=== PATIENT | male | born 1960 | race Caucasian/White ===

== ENCOUNTER → 2020-11-04 00:06 | Outpatient (CLI) | payer BC, SELFPAY ==
[2020-11-04 15:57] LABS: SARS-CoV-2 RNA PCR Negative
== END ==
PROVIDERS: PCP Internal Medicine; Visit Provider Internal Medicine Gastroenterology
DX: Z01.812 Encounter for preprocedural laboratory examination (principal); Z20.822 Contact with and (suspected) exposure to COVID-19
CPT/HCPCS: C9803; U0003; U0005

== ENCOUNTER 2020-11-07 01:23 | Day surgery (SDC) | payer BC, SELFPAY ==
[2020-10-18 14:05] VITALS: BMI 25.8
[2020-11-07 06:39] VITALS: BP 131/81; PULSE 68; RESP 18; TEMP 36.3; O2SAT 99; BMI 25.9
[2020-11-07] MEDS: LACTATED RINGERS 1,000 ML 150 ML IV CONT (06:55)
[2020-11-07 06:58] LABS: Glucose Point of Care 115 mg/dl (65-105)
--- NOTE | 2020-11-07 07:00 | PM.HPGS ---
History of Present Illness History of Present Illness Consent: Risks, benefits, and alternatives have been discussed and questions answered. Patient agrees to proceed with procedure. Chief complaint: GERD Narrative: Baron Florentino is a 60 year old male with long history of acid reflux. His symptoms are controlled with omeprazole. He had never been examined to rule out James's. He denies dysphagia Review of Systems Review of Systems: All systems reviewed & are unremarkable except as noted in HPI and below PMFSH Past Medical History Medical History (Updated 11/07/20 @ 07:19 by Gopal Reyes MD) CAD (coronary artery disease) Diabetes GERD (gastroesophageal reflux disease) Hyperlipidemia Hypertension Surgical History Surgical History Hx of CABG Family History Family History (Updated 11/07/20 @ 07:19 by Gopal Reyes MD) Father Diabetes mellitus Hypertension Sibling Diabetes mellitus Mother Diabetes mellitus Other Family history of malignant neoplasm GERD (gastroesophageal reflux disease) Social History Social History Smoking status: Former smoker Tobacco type: cigars Alcohol intake: former Living arrangements: alone Spiritual care concerns: No Meds Home Medications and Allergies Home Medications Medication Instructions Recorded Confirmed Type Janumet 1 tablet PO DAILY 04/20/19 10/18/20 History aspirin 81 mg PO DAILY 04/20/19 10/18/20 History cholecalciferol (vitamin D3) 4,000 unit PO DAILY 04/20/19 10/18/20 History [Vitamin D3] metoprolol succinate 100 mg PO DAILY 04/20/19 10/18/20 History omeprazole 40 mg PO DAILY 04/20/19 10/18/20 History rosuvastatin 40 mg PO DAILY 04/20/19 10/18/20 History cyclobenzaprine 10 mg PO DAILY 10/18/20 10/18/20 History icosapent ethyl 4 g PO DAILY 10/18/20 10/18/20 History Allergies Allergy/AdvReac Type Severity Reaction Status Date / Time atorvastatin AdvReac Unknown Muscle Verified 11/07/20 06:38 Spasms Vital Signs Vital Signs - 24 hr 11/07/20 06:39 Temperature 36.3 C L Pulse Rate 68 Respiratory Rate 18 Blood Pressure 131/81 Pulse Oximetry 99 Exam Const: General: alert Orientation/consciousness: patient oriented x3 Resp: Auscultation: clear to auscultation bilaterally Cardio: Rhythm: regular rhythm GI: GI Palp: Yes Soft to palpation and No Tenderness to palpation present (GI) Neuro: General: patient oriented x3 Assessment and Plan Assessment and plan (1) GERD (gastroesophageal reflux disease): Code(s): K21.9 - Gastro-esophageal reflux disease without esophagitis Status: Acute Assessment and Plan: EGD with possible biopsy or dilatation or cautery.
--- NOTE | 2020-11-07 07:22 | WPDANESEPPF ---
Anes - Initial Pre Proc Eval Procedure: Operation Date: 11/07/20 08:00 Proposed Procedures p Esophagogastroduodenoscopy - Gopal Reyes MD Date/Time: 11/07/20 07:22 Surgeon: Gopal Reyes MD Pre Op Diagnosis: GERD Patient Data Age: 60 Gender: M Height: 1.83 m Weight: 86.6 kg Last Vital Signs Temp 36.3 C L 11/07/20 06:39 Pulse 68 11/07/20 06:39 Resp 18 11/07/20 06:39 BP 131/81 11/07/20 06:39 Pulse Ox 99 11/07/20 06:39 Allergies Allergy/AdvReac Type Severity Reaction Status Date / Time atorvastatin AdvReac Unknown Muscle Verified 11/07/20 06:38 Spasms Home Medications Medication Instructions Recorded Confirmed Type Janumet 1 tablet PO DAILY 04/20/19 10/18/20 History aspirin 81 mg PO DAILY 04/20/19 10/18/20 History cholecalciferol (vitamin D3) 4,000 unit PO DAILY 04/20/19 10/18/20 History [Vitamin D3] metoprolol succinate 100 mg PO DAILY 04/20/19 10/18/20 History omeprazole 40 mg PO DAILY 04/20/19 10/18/20 History rosuvastatin 40 mg PO DAILY 04/20/19 10/18/20 History cyclobenzaprine 10 mg PO DAILY 10/18/20 10/18/20 History icosapent ethyl 4 g PO DAILY 10/18/20 10/18/20 History Laboratory Tests 11/07/20 06:52 POC Capillary Glucose 115 mg/dl H mg/dl (65-105) Patient hx anesthesia problems: none Family hx anesthesia problems: none [facility] Past Medical History Medical History CAD (coronary artery disease) Diabetes GERD (gastroesophageal reflux disease) Hyperlipidemia Hypertension Surgical History Surgical History Hx of CABG Family History Family History Father Diabetes mellitus Hypertension Sibling Diabetes mellitus Mother Diabetes mellitus Other Family history of malignant neoplasm GERD (gastroesophageal reflux disease) Social History Social History Smoking status: Former smoker Tobacco type: cigars Alcohol intake: former Living arrangements: alone Spiritual care concerns: No Anes - Eval Final PreProcedure Day of Procedure 11/07/20 07:22 Patient weight: overweight Heart: regular rate and rhythm Lungs: clear to auscultation Airway: Mallampati scale class II Neurological: alert and oriented Last oral intake: >/= 8 hours ASA classification: III Emergent: no Anesthetic plan: proceed Anesthesia type and monitoring: general GIVS and standard monitoring Informed Consent: The patient's anesthetic plan and its attendant risks and benefits were discussed with the patient/family/POA. Questions were solicited and answers provided to the satisfaction of the patient/family/POA.
[2020-11-07 08:07] VITALS: BP 97/59; PULSE 65; RESP 18; O2SAT 96
[2020-11-07 08:17] VITALS: BP 90/52; PULSE 68; RESP 24; O2SAT 94
[2020-11-07 08:27] VITALS: BP 103/82; PULSE 68; RESP 17; O2SAT 96
--- NOTE | 2020-11-07 08:48 | SUR.PHASEII ---
Rosalinda, the patients transportation, to arrive from an appointment in 30 min.
== END 2020-11-07 09:15 | disposition home or self-care (01) ==
PROVIDERS: PCP Internal Medicine; Visit Provider Internal Medicine Gastroenterology
PROC: 0DJ08ZZ Inspection of Upper Intestinal Tract, Via Natural or Artificial Opening Endoscopic (ICD-10-PCS; CPT 43235; principal; 2020-11-07 08:00)
DX: K21.00 Gastro-esophageal reflux disease with esophagitis, without bleeding (principal); K86.89 Other specified diseases of pancreas; I25.10 Atherosclerotic heart disease of native coronary artery without angina pectoris; I10 Essential (primary) hypertension; E11.9 Type 2 diabetes mellitus without complications; E78.5 Hyperlipidemia, unspecified; Z79.82 Long term (current) use of aspirin; Z79.84 Long term (current) use of oral hypoglycemic drugs; Z95.1 Presence of aortocoronary bypass graft; Z87.891 Personal history of nicotine dependence
CPT/HCPCS: 43239; 82948; 88305; J2704; J7120

== ENCOUNTER 2021-10-02 22:17 | Observation (INO) | payer BC, SELFPAY ==
--- NOTE | ~2021-10-02 | XR_ITS ---
XR chest 2V 10/02/2021 23:31 Indication: Chest pain Procedure: PA and lateral views of the chest Comparison: No prior studies for comparison. Findings: Heart size normal. Status post median sternotomy for CABG. No focal air space disease, pulm onary edema, pleural effusion or suspected pneumothorax. Impression: 1: No acute cardiopulmonary disease. Reviewed, dictated and finalized at location A. Impression: 1: No acute cardiopulmonary disease.
--- NOTE | 2021-10-02 22:25 | ECG_ITS ---
Measurements Intervals [place] Rate: 87 P: 25 MT: 132 QRS: 9 QRSD: 90 T: 137 QT: 373 QTc: 450 Interpretive Statements SINUS RHYTHM ST DEVIATION AND MODERATE T-WAVE ABNORMALITY, CONSIDER LATERAL ISCHEMIA [-0.1+ mV T WAVE IN I/aVL/V5/V6] ABNORMAL ECG NO PREVIOUS ECG AVAILABLE FOR COMPARISON Electronically Signed On 10-03-2021 16:55:03 CDT by Jesus Almanza M.D.
[2021-10-02 22:47] VITALS: BP 144/95; PULSE 90; RESP 18; TEMP 36.5; O2SAT 96
[2021-10-02 23:06] LABS: Basophils Percent Auto 0.2 % (0.2-1.2); Hematocrit 44.3 % (42.0-52.0); Hemoglobin 15.1 g/dL (14.0-18.0); Immature Granulocyte Absolute 0.03 K/mm3 (0.00-0.031); Immature Granulocyte Percent A 0.3 % (0-0.5); Lymphocytes Absolute Auto 2.14 K/mm3 (0.9-3.2); Lymphocytes Percent Auto 22.6 % (18.3-44.2); Mean Corpuscular HGB Conc 34.1 g/dl (32-36); Mean Corpuscular Hemoglobin 28.5 pg (26-34); Mean Corpuscular Volume 83.6 fl (80-100); Mean Platelet Volume 9.2 fl (7.4-10.4); Monocytes Absolute Auto 0.2 K/mm3 (0.1-0.6); Monocytes Percent Auto 2.1 % (2.6-8.5); Neutrophils Absolute Auto 7.1 K/mm3 (1.3-6.7); Neutrophils Percent Auto 74.8 % (45.5-73.1); Platelet Count Result 267 k/mm3 (150-375); Red Cell Distribution Width 13.2 % (11.5-14.5); White Blood Count 9.5 K/mm3 (4.5-10.0)
[2021-10-02 23:16] LABS: Alanine Aminotransferase 56 U/L (6-50); Albumin Level 5.1 g/dL (3.5-5.1); Alkaline Phosphatase 64 U/L (38-126); Anion Gap 13 mmol/L (8-16); Aspartate Amino Transferase 49 U/L (17-59); Bilirubin,Total 2.7 mg/dL (0.2-1.3); Blood Urea Nitrogen 14 mg/dL (9-20); Calcium 9.6 mg/dL (8.4-10.2); Carbon Dioxide 19 mmol/L (22-30); Chloride 104 mmol/L (98-107); Estimated CRCL calculation 81 ml/min; Estimated Glomerular Filt Rate > 60; Glucose 287 mg/dL (65-110); INR 1.1; Lipase 502 U/L (23-300); Potassium 4.8 mmol/L (3.4-5.0); Prothrombin Time 14.1 Seconds (11.1-14.7); Sodium 136 mmol/L (137-145)
[2021-10-02 23:17] LABS: Partial Thromboplastin Time 27.5 SECONDS (22.3-36.8)
[2021-10-02 23:27] LABS: Troponin I < 0.012 ng/mL (0.000-0.034)
[2021-10-03] VITALS (23 sets, daily range): BP systolic 102–152; BP diastolic 67–95; PULSE 60–89; RESP 15–21; TEMP 36.1–36.8; O2SAT 93–99; BMI 26.2
[2021-10-03] MEDS: ASPIRIN 81 MG CHEWABLE TABLET 324 MG PO (00:26)
--- NOTE | 2021-10-03 00:26 | PC.NURSE ---
Pt took one 81mg Aspirin prior to coming to ED. Administered 243mg.
--- NOTE | 2021-10-03 00:46 | ED.CHESTPAIN ---
HPI - Chest Pain General Chief Complaint: Chest Pain Stated Complaint: chest pain Time Seen by Provider: 10/03/21 00:12 History of Present Illness HPI narrative: Patient is a 61-year-old male who presents ER with chest pain. Left-sided. Goes into his back and down his arm. Is been occurring intermittently over the last week with exertion. It will occur when he goes upstairs and gets better when he sits down to rest. He has had some nausea as well as the shortness of breath. Tonight it came on while he was at rest. He laid down to go to bed but did not go away pain was 8/10 when he arrived is currently 3/10 without. He does not have nitroglycerin at home. Patient has history of four-vessel bypass. Cared for by Dr. Almanza. Related Data Home Medications Medication Instructions Recorded Confirmed aspirin 81 mg tablet,delayed 81 mg PO DAILY 04/20/19 10/03/21 release cholecalciferol (vitamin D3) 50 4,000 unit PO DAILY 04/20/19 10/03/21 mcg (2,000 unit) tablet (Vitamin D3) metoprolol succinate 100 mg 100 mg PO DAILY 04/20/19 10/03/21 tablet,extended release 24 hr omeprazole 40 mg capsule,delayed 40 mg PO DAILY 04/20/19 10/03/21 release rosuvastatin 20 mg tablet 20 mg PO DAILY 04/20/19 10/03/21 sitagliptin 50 mg-metformin 1,000 1 tablet PO Q12H 04/20/19 10/03/21 mg tablet (Janumet) cyclobenzaprine 10 mg tablet 10 mg PO DAILY PRN Pain 10/18/20 10/03/21 icosapent ethyl 1 gram capsule 2 g PO Q12H 10/18/20 10/03/21 methylprednisolone 4 mg tablets in See Rx Instructions .Route .COMPLEX 10/03/21 10/03/21 a dose pack Allergies Allergy/AdvReac Type Severity Reaction Status Date / Time atorvastatin AdvReac Unknown Muscle Verified 11/07/20 06:38 Spasms Review of Systems Review of Systems: All systems reviewed & are unremarkable except as noted in HPI and below Constitutional: Constitutional: Denies chills, Denies fatigue and Denies fever(s) ENT: Denies nasal congestion and Denies sore throat Cardiovascular: Cardiovascular: Reports chest pain, Denies rapid heart rate and Reports radiating jaw, neck or arm pain Respiratory: Respiratory: Denies chest congestion, Denies cough and Reports dyspnea Gastrointestinal: Gastrointestinal: Denies abdominal pain, Denies diarrhea, Reports nausea and Denies vomiting Neurologic: Denies headache(s), Denies focal weakness and Denies numbness PMFSH Past Medical History Medical History (Updated 10/03/21 @ 06:29 by Wesley Lala MD) CAD (coronary artery disease) Diabetes GERD (gastroesophageal reflux disease) Hyperlipidemia Hypertension Surgical History Surgical History Hx of CABG Family History Family History Father Diabetes mellitus Hypertension Sibling Diabetes mellitus Mother Diabetes mellitus Other Family history of malignant neoplasm GERD (gastroesophageal reflux disease) Social History Social History Smoking status: Never smoker Tobacco type: cigars Alcohol intake: former Substance use: never Substance use type: does not use Spiritual care concerns: No Exam Narrative: GENERAL: Well-appearing, well-nourished, and in no acute distress. HEAD: Normocephalic, atraumatic. EYES: PERRL and EOMI. CHEST: Clear to auscultation. No respiratory distress. HEART: Regular rate and rhythm. Normal peripheral pulses. ABDOMEN: Soft, nontender, nondistended. EXTREMITIES: Normal range of motion. No edema. SKIN: Warm, dry, no rash. NEURO: Alert and oriented x3. PSYCH: Normal mood and affect. Course Course Emergency Course: Patient resting comfortably. Informed of results. Discussed case with hospitalist who is excepted the patient. Cardiology consulted and recommends 1 dose Lovenox. Keep patient n.p.o. for possible procedure in the morning. Vital Signs Vital sign
--- NOTE | 2021-10-03 00:59 | PM.IMHP ---
H&P: HPI History of Present Illness Date/Time: 10/03/21 00:59 Chief Complaint: Chest pain Narrative: This is a 61-year-old male with past medical history significant for coronary artery disease status post coronary artery bypass grafting, tobacco dependence, patient presents today to the emergency room. Patient states that he has been having chest pain with minimal exertion and goes away after resting there has been no loss of consciousness no syncope, no near syncope, but patient has been bed very lightheaded and close to passing out. Patient denies any nausea, vomiting, fevers, rigors, chills. Today patient decided to present to the emergency room after being arrested pain persisted is localized to the precordial area with radiation to the shoulder and jaw 0 with numbness and tingling sensation. Patient has been admitted for further evaluation, management and treatment. Review of Systems Review of Systems: Chest pain on and off for the last week or so Constitutional: Constitutional: Denies body ache(s), Denies chills, Denies fatigue and Denies lethargy Eyes: Eyes: Denies change in vision ENT: Denies dysphagia, Denies vertigo, Denies nasal congestion, Denies nasal discharge and Denies odynophagia Cardiovascular: Cardiovascular: Reports chest pain, Denies pedal edema, Denies claudication, Reports lightheadedness, Reports radiating jaw, neck or arm pain, Reports palpitations, Reports dyspnea on exertion and Denies paroxysmal nocturnal dyspnea Respiratory: Respiratory: Denies cough and Denies excessive phlegm production Gastrointestinal: Gastrointestinal: Denies abdominal pain, Denies coffee ground emesis, Denies GI cramping, Denies dyspepsia and Denies heartburn Musculoskeletal: Musculoskeletal: Denies abnormal gait, Denies arthralgias and Denies joint swelling Integumentary/Breasts: Skin/Breast: Denies dry skin Endocrine: Endocrine: Denies change in libido, Denies cold intolerance, Denies flushing, Denies heat intolerance, Denies polyphagia, Denies polydipsia, Denies polyuria and Denies palpitations Hematologic/Lymphatic: Hematologic/Lymphatic: Reports no additional hematologic/lymphatic complaints and Reports as per HPI Allergic/Immunologic: Allergic/Immunologic: Reports no additional allergic/immunologic complaints and Reports as per HPI [facility] Past Medical History Medical History (Updated 10/03/21 @ 05:02 by Mohamud Vinson MD) CAD (coronary artery disease) Diabetes GERD (gastroesophageal reflux disease) Hyperlipidemia Hypertension Surgical History Surgical History Hx of CABG Family History Family History Father Diabetes mellitus Hypertension Sibling Diabetes mellitus Mother Diabetes mellitus Other Family history of malignant neoplasm GERD (gastroesophageal reflux disease) Social History Social History Smoking status: Never smoker Tobacco type: cigars Alcohol intake: former Substance use: never Substance use type: does not use Spiritual care concerns: No Meds Home Medications and Allergies Home Medications Medication Instructions Recorded Confirmed Type aspirin 81 mg tablet,delayed 81 mg PO DAILY 04/20/19 10/03/21 History release cholecalciferol (vitamin D3) 50 4,000 unit PO DAILY 04/20/19 10/03/21 History mcg (2,000 unit) tablet (Vitamin D3) metoprolol succinate 100 mg 100 mg PO DAILY 04/20/19 10/03/21 History tablet,extended release 24 hr omeprazole 40 mg capsule,delayed 40 mg PO DAILY 04/20/19 10/03/21 History release rosuvastatin 20 mg tablet 20 mg PO DAILY 04/20/19 10/03/21 History sitagliptin 50 mg-metformin 1,000 1 tablet PO Q12H 04/20/19 10/03/21 History mg tablet (Janumet) cyclobenzaprine 10 mg tablet 10 mg PO DAILY PRN Pain 10/18/20 10/03/21 History icosapent ethyl 1 gram capsul
[2021-10-03] MEDS: ENOXAPARIN 100 MG/ML SYRINGE 98 MG SUB-Q (02:00)
[2021-10-03 02:12] LABS: Troponin I < 0.012 ng/mL (0.000-0.034)
[2021-10-03 02:13] LABS: SARS-CoV-2 RNA PCR Negative
--- NOTE | 2021-10-03 02:57 | ADMGEN ---
This patient, Baron Florentino, was admitted to IMU Room 206-01 10/03/21 at 0255. Patient/family oriented to hospital policies and general routines including ID bracelet, bed and alarms, visiting hours, pain management, procedures, bathroom and other care routines, personal items, smoking policy, room service/diet, and visiting hours. Information on how to activate the Rapid Response Team has been discussed. Patient/Family are encouraged to report perceived risks to care and to ask questions if they do not understand what they are told or what they should do.
[2021-10-03 05:40] LABS: Troponin I < 0.012 ng/mL (0.000-0.034)
--- NOTE | 2021-10-03 09:38 | PM.CNCAR ---
Assessment and Plan Assessment and plan (1) Chest pain: Code(s): R07.9 - Chest pain, unspecified <TIBURCIO Landaverde - Last Filed: 10/03/21 12:46> Status: Acute <TIBURCIO Landaverde - Last Filed: 10/03/21 12:46> Assessment and Plan: Concerning given his complex CAD history. He is describing typical angina symptoms. Discussed with patient and that recommendation would be to undergo coronary angiogram to evaluate patentcy of bypass grafts. Discussed the case with Dr. Palmer who agrees that cardiac cath should be pursued today. Further recommendations to follow findings of that procedure. <TIBURCIO Landaverde - Last Filed: 10/03/21 12:46> (2) Hyperlipidemia: Code(s): E78.5 - Hyperlipidemia, unspecified <TIBURCIO Landaverde - Last Filed: 10/03/21 12:46> Status: Acute <TIBURCIO Landaverde - Last Filed: 10/03/21 12:46> Assessment and Plan: Controlled. On statin, Vascepa. <TIBURCIO Landaverde - Last Filed: 10/03/21 12:46> (3) CAD (coronary artery disease): Code(s): I25.10 - Atherosclerotic heart disease of [place] coronary artery without angina pectoris <TIBURCIO Landaverde - Last Filed: 10/03/21 12:46> Status: Acute <TIBURCIO Landaverde - Last Filed: 10/03/21 12:46> Assessment and Plan: Complex history of CAD as detailed in the HPI. Has been stable until recently with development of exertional chest pain. Plan as above. Will continue aggressive risk modification for CAD. <TIBURCIO Landaverde - Last Filed: 10/03/21 12:46> History of Present Illness History of Present Illness Consult date/time: 10/03/21 09:38 <TIBURCIO Landaverde - Last Filed: 10/03/21 12:46> Requesting physician: Lazaro Cueto DO <TIBURCIO Landaverde - Last Filed: 10/03/21 12:46> Consult reason: chest pain <TIBURCIO Landaverde - Last Filed: 10/03/21 12:46> Reason For Visit: chest pain <TIBURCIO Landaverde - Last Filed: 10/03/21 12:46> Narrative: Mr. Draper is a 61-year-old male with a past medical history of hyperlipidemia, type 2 diabetes, complex multivessel coronary artery disease status post coronary artery bypass grafting. This is a patient who initially established care with Dr. Davis in 2017 when he presented to the hospital with unstable angina and underwent cardiac catheterization that showed 80% distal hazy left main lesion, LAD with a 100% WARP CHANGER, and patent bypass grafts x4. He is now followed by Dr. Almanza. He has been stable up until about 1 week ago when he began to experience exertional chest pain. He states that he will develop retrosternal chest pain after walking up a flight of stairs or working out in the yard. His chest pain is relieved by about 10 minutes of rest. He does not use nitroglycerin at home. He describes radiation his chest pain to his left shoulder and back. He also has experienced numbness and tingling in his left arm fingers associated his chest pain. He has experienced some episodes of chest pain at rest. He denies any syncope, presyncope, paroxysmal nocturnal dyspnea, swelling. Does experience occasional palpitations. Currently, he is resting comfortably in bed but does endorse some mild chest discomfort. Troponins have been negative x3. <TIBURCIO Landaverde - Last Filed: 10/03/21 12:46> Review of Systems Constitutional: Constitutional: Denies chills, Denies fever(s), Denies headache(s) and Denies malaise <TIBURCIO Landaverde - Last Filed: 10/03/21 12:46> Eyes: Eyes: Denies change in vision <TIBURCIO Landaverde - Last Filed: 10/03/21 12:46> ENT: Reports Normal hearing present, Denies dizziness, Denies headache(s) and Denies hearing loss <TIBURCIO Landaverde - Last Filed: 10/03/21 12:46> Cardiovascular: Cardiovascular: Reports chest pain (with exertion and at rest ), Denies syncope, Denies leg edema, Denies dyspnea and Denies dyspnea on exertion <Jesica
[2021-10-03] MEDS: METOPROLOL SUCCINATE EXT REL 100 MG TABCR PO (10:00)
[2021-10-03] MEDS: CHOLECALCIFEROL 1,000 UNITS TABLET 4000 UNITS PO (10:00)
[2021-10-03] MEDS: ROSUVASTATIN 10 MG TABLET 20 MG PO (10:01)
[2021-10-03] MEDS: methylPREDNISolone 4 MG TABLET PO (10:01)
[2021-10-03] MEDS: ASPIRIN 81 MG ENTERIC TABLET PO (10:02)
[2021-10-03] MEDS: metFORMIN HCL 500 MG TABLET 1000 MG PO ×2 (10:02→20:53)
[2021-10-03] MEDS: OMEGA 3 POLYUNSAT FATTY ACIDS 1 GM CAP 2 GM PO ×2 (10:02→20:52)
[2021-10-03] MEDS: PANTOPRAZOLE 40 MG TABLET PO ×2 (10:03→20:53)
--- NOTE | 2021-10-03 12:04 | PM.IMPN ---
Progress Note: A&P Assessment and Plan (1) Chest pain: Code(s): R07.9 - Chest pain, unspecified Status: Acute Assessment and Plan: Cardiology consult (2) CAD (coronary artery disease): Code(s): I25.10 - Atherosclerotic heart disease of [place] coronary artery without angina pectoris Status: Acute Assessment and Plan: Status post coronary artery bypass grafting Restart home meds (3) Hyperlipidemia: Code(s): E78.5 - Hyperlipidemia, unspecified Status: Acute Assessment and Plan: Restart home meds (4) GERD (gastroesophageal reflux disease): Code(s): K21.9 - Gastro-esophageal reflux disease without esophagitis Status: Acute Assessment and Plan: Restart home meds Subjective Date/time seen: 10/03/21 12:04 No active chest pain Exam Const: General: comfortable, no acute distress, well developed, alert and awake Nutritional Appearance: average body habitus Orientation/consciousness: patient oriented x3 Other: Well-appearing HENMT: Head: normal to inspection, normocephalic and atraumatic Ears: hearing grossly normal bilaterally Face and sinus: normal facial exam Eyes: General: appearance normal, both eyes and all related structures Pupils: Equal, round and reactive pupils present EOM: EOMs intact bilaterally Neck: Neck: full ROM, no lymphadenopathy and no JVD Thyroid: thyroid normal Lymphatic: no lymphadenopathy noted Resp: Effort & Inspection: normal respiratory effort and able to speak in complete sentences Auscultation: clear to auscultation bilaterally Cardio: Jugular venous distension: no JVD Rate: regular rate Rhythm: regular rhythm Heart sounds: S1 normal heart sound present and S2 normal heart sound present : General: Yes deferred Skin: Rashes: no rashes Wounds: no wounds Neuro: General: patient oriented x3 and CN's II-XI intact bilaterally Cranial nerves: Yes CN's II-XII intact bilaterally and Yes Equal, round and reactive pupils present Cognition (Neuro): normal cognition Speech: normal speech Gait exam (Neuro): Normal gait present Motor exam (neuro): 5/5 motor strength present throughout Extrem: General: normal to inspection, full ROM, no joint enlargement and no pedal edema Objective Data Vital Signs Vital Signs: Vital Signs - 24 hr 10/02/21 22:47 10/03/21 00:09 10/03/21 02:54 Temperature 97.7 F Pulse Rate 90 86 88 Respiratory Rate 18 18 21 H Blood Pressure 144/95 H 130/94 H 138/90 Pulse Oximetry 96 97 97 Oxygen Delivery Room Air 10/03/21 03:01 10/03/21 03:41 10/03/21 02:55 Temperature 96.9 F L 97.2 F L Pulse Rate 88 83 Respiratory Rate 16 18 Blood Pressure 152/95 H 139/82 Pulse Oximetry 99 96 Oxygen Delivery Room Air 10/03/21 04:00 10/03/21 04:00 10/03/21 06:00 Temperature Pulse Rate 89 77 Respiratory Rate Blood Pressure Pulse Oximetry Oxygen Delivery Room Air 10/03/21 07:39 10/03/21 08:00 10/03/21 08:00 Temperature 97.9 F Pulse Rate 75 71 Respiratory Rate 16 Blood Pressure 132/78 Pulse Oximetry 96 Oxygen Delivery Room Air 10/03/21 10:00 10/03/21 10:00 Temperature Pulse Rate 73 70 Respiratory Rate Blood Pressure Pulse Oximetry Oxygen Delivery Intake/Output Intake/Output: Intake & Output 09/30/21 10/01/21 10/02/21 10/03/21 23:59 23:59 23:59 23:59 Output Total 300 Balance -300 Meds/Results Medications: Active Medications Generic Name Dose Route Start Last Admin Trade Name Uche PRN Reason Stop Dose Admin Acetaminophen 650 mg 10/03/21 00:57 Acetaminophen 325 Mg Tablet PO Q4H PRN Mild Pain (1-3) or Fever Hydrocodone Bitart/Acetaminophen 1 tab 10/03/21 00:57 Hydrocodone/Acetaminophen (*Crx) 5-325 Mg Tablet PO Q4H PRN Pain Rated 4-6 Aspirin 81 mg 10/03/21 09:00 10/03/21 10:02 Aspirin 81 Mg Enteric Tablet PO 81 mg DAILY RANDA Administration Cyclobenzaprine
--- NOTE | 2021-10-03 16:34 | WPDCARDPROC ---
Cardiac Cath Procedure Note Date of procedure:: 10/03/21 Performing physician:: Casey Palmer MD Indication:: unstable angina Brief clinical history:: Mr. Draper is a 61-year-old male with a past medical history of hyperlipidemia, type 2 diabetes, complex multivessel coronary artery disease status post coronary artery bypass grafting.? This is a patient who initially established care with Dr. Davis in 2017 when he presented to the hospital with unstable angina and underwent cardiac catheterization that showed 80% distal hazy left main lesion, LAD with a 100% INTERIOR HORTICULTURIST, and patent bypass grafts x4.? He is now followed by Dr. Almanza.? He has been stable up until about 1 week ago when he began to experience exertional chest pain.? He states that he will develop retrosternal chest pain after walking up a flight of stairs or working out in the yard.? His chest pain is relieved by about 10 minutes of rest.? He does not use nitroglycerin at home.? He describes radiation his chest pain to his left shoulder and back.? He also has experienced numbness and tingling in his left arm fingers associated his chest pain.? He has experienced some episodes of chest pain at rest.? He denies any syncope, presyncope, paroxysmal nocturnal dyspnea, swelling.? Does experience occasional palpitations.? Currently, he is resting comfortably in bed but does endorse some mild chest discomfort.? Troponins have been negative x3. Procedure Procedure performed:: 1-Moderate sedation that started at 2:49 p.m. and ended at 4:21 p.m. with total duration 93 minutes using 3mg of Versed and 125mcg fentanyl. The registered nurse was harriett frausto 2-Selective left and right coronary angiogram. 3-Left heart catheterization with measurement of LVEDP and measurement of gradient across aortic valve. 4- LV angiogram. 5- attempted intervention on [place] vessel originating from the graft to diagonal supplying a segment of LAD. inability to pass wire due to difficult tern and angulation 4-Right common femoral arterial angiogram. 5-Deployment of 6 [place] Angio-Seal. Sedation/Medication given:: Moderate sedation. Access site:: Right common femoral artery. Estimated blood loss:: 10cc Procedure note:: After informed consent patient was brought in to laborer carpentry dock with the was draped and prepped in usual manner. Moderate sedation was given and the right groin was infiltrated using 1% lidocaine. Five Hungarian sheath was obtained using micropuncture needle and the modified Seldinger technique. Selective left coronary angiogram was done using JL4 catheter with the tip of the catheter placed in the left main coronary artery. Selective right coronary angiogram was done using JR4 catheter with the tip of the catheter placed to the right coronary artery. After that 5 Hungarian pigtail catheter was advanced across the aortic valve into the left ventricle with measurement of LVEDP and measurement of gradient across aortic valve. graft angiogram done using JR4 catheter and then JR4 was used to enter the left subclavian artery and using long exchange LEXII catheter. LEXII catheter was used to visualize the [place] Right common femoral arterial angiogram was done. the 5 Hungarian sheath was upgraded to 6 Hungarian sheath then guide catheter the JR4. subsequently attempted to wire the lesion using luge wire without success and then we used Straight Line Press Setter 150 without success and then we tried a prison teacher 1.25 microcatheter however we could not pass the sharp angulation. deployed 6 [place] Angio-Seal Findings:: 1- left coronary artery is a large artery and distally at junction with the large left circumflex artery there is about 85% stenosis slightly worse compared to a catheterization done in 2017 2- left anterior descending artery is totally occluded at the ostium. 3- leftcircumflex artery is a large artery and codominant. Ostium has about 85%. Medium size left PDA looks unremarkable 4- right coronary artery is large artery and codominant m
--- NOTE | 2021-10-03 16:47 | WPDHPUPDATE1 ---
History and Physical Update Update Date/Time: 10/03/21 16:47 History and Physical has been reviewed, including an updated exam of the patient. There are NO changes in the patient's condition. Risks, benefits, and alternatives have been discussed and questions answered. Patient agrees to proceed with procedure.
--- NOTE | 2021-10-03 16:47 | WPDMODSED ---
Moderate Sedation Note-Pt Data Patient Data Allergies Allergy/AdvReac Type Severity Reaction Status Date / Time atorvastatin AdvReac Unknown Muscle Verified 10/03/21 12:39 Spasms Home Medications Medication Instructions Recorded Confirmed Type aspirin 81 mg tablet,delayed 81 mg PO DAILY 04/20/19 10/03/21 History release cholecalciferol (vitamin D3) 50 4,000 unit PO DAILY 04/20/19 10/03/21 History mcg (2,000 unit) tablet (Vitamin D3) metoprolol succinate 100 mg 100 mg PO DAILY 04/20/19 10/03/21 History tablet,extended release 24 hr omeprazole 40 mg capsule,delayed 40 mg PO DAILY 04/20/19 10/03/21 History release rosuvastatin 20 mg tablet 20 mg PO DAILY 04/20/19 10/03/21 History sitagliptin 50 mg-metformin 1,000 1 tablet PO Q12H 04/20/19 10/03/21 History mg tablet (Janumet) cyclobenzaprine 10 mg tablet 10 mg PO DAILY PRN Pain 10/18/20 10/03/21 History icosapent ethyl 1 gram capsule 2 g PO Q12H 10/18/20 10/03/21 History methylprednisolone 4 mg tablets in See Rx Instructions .Route .COMPLEX 10/03/21 10/03/21 History a dose pack Current Medications: Active Medications Acetaminophen (Acetaminophen 325 Mg Tablet) 650 mg PO Q4H PRN PRN Reason: Mild Pain (1-3) or Fever Hydrocodone Bitart/Acetaminophen (Hydrocodone/Acetaminophen (*Crx) 5-325 Mg Tablet) 1 tab PO Q4H PRN PRN Reason: Pain Rated 4-6 Aspirin (Aspirin 81 Mg Enteric Tablet) 81 mg PO DAILY [facility] Last Admin: 10/03/21 10:02 Dose: 81 mg Cyclobenzaprine HCl (Cyclobenzaprine Hcl 10 Mg Tablet) 10 mg PO DAILY PRN PRN Reason: Pain Fish Oil (Reubens 3 Polyunsat Fatty Acids 1 Gm Cap) 2 gm PO Q12H [facility] Last Admin: 10/03/21 10:02 Dose: 2 gm Metformin HCl (Metformin Hcl 500 Mg Tablet) 1,000 mg PO Q12H [facility] Last Admin: 10/03/21 10:02 Dose: 1,000 mg Methylprednisolone (Methylprednisolone 4 Mg Tablet) 4 mg PO DAILY@0630 [facility] Stop: 10/07/21 06:31 Last Admin: 10/03/21 10:01 Dose: 4 mg Methylprednisolone (Methylprednisolone 4 Mg Tablet) 4 mg PO DAILY@1300 [facility] Stop: 10/05/21 13:01 Methylprednisolone (Methylprednisolone 4 Mg Tablet) 4 mg PO DAILY@1700 [facility] Stop: 10/04/21 17:01 Methylprednisolone (Methylprednisolone 4 Mg Tablet) 8 mg PO HS [facility] Stop: 10/03/21 21:01 Methylprednisolone (Methylprednisolone 4 Mg Tablet) 4 mg PO HS [facility] Stop: 10/06/21 21:01 Metoprolol Succinate (Metoprolol Succinate Ext Rel 100 Mg Tabcr) 100 mg PO DAILY [facility] Last Admin: 10/03/21 10:00 Dose: 100 mg Morphine Sulfate (Morphine Sulfate (*Crx) 4 Mg/Ml Inj) 4 mg IV PUSH Q2H PRN PRN Reason: Pain Rated 7-10 Ondansetron HCl (Ondansetron Inj 4 Mg/2 Ml Vial) 4 mg IV PUSH Q4H PRN PRN Reason: Nausea Pantoprazole Sodium (Pantoprazole 40 Mg Tablet) 40 mg PO Q12HR [facility] Last Admin: 10/03/21 10:03 Dose: 40 mg Perflutren Lipid Microsphere (Perflutren Lipid Microspheres 1.5 Ml Vial Diluted To 10 Ml Total Volume) 0 ml IV PUSH ONCE PRN; Protocol PRN Reason: adequate visualization Rosuvastatin Calcium (Rosuvastatin 10 Mg Tablet) 20 mg PO DAILY [facility] Last Admin: 10/03/21 10:01 Dose: 20 mg Sitagliptin Phosphate (Sitagliptin 50 Mg Tablet) 50 mg PO Q12HR [facility] Vitamin D (Cholecalciferol 1,000 Units Tablet) 4,000 units PO DAILY [facility] Last Admin: 10/03/21 10:00 Dose: 4,000 units Sedation/Anesthesia: No previous sedation/anesthesia problems (including family history). [facility] Past Medical History Medical History CAD (coronary artery disease) Diabetes GERD (gastroesophageal reflux disease) Hyperlipidemia Hypertension Surgical History Surgical History Hx of CABG Family History Family History Father Diabetes mellitus Hypertension Sibling Diabetes mellitus Mother Diabetes mellitus Other Family history of malignant neoplasm GERD (gastroesophageal reflux disease) Social History Socia
--- NOTE | 2021-10-03 17:11 | ECG_ITS ---
Measurements Intervals [place] Rate: 69 P: 52 WA: 161 QRS: 4 QRSD: 98 T: 144 QT: 405 QTc: 436 Interpretive Statements SINUS RHYTHM MODERATE T-WAVE ABNORMALITY, CONSIDER LATERAL ISCHEMIA [-0.1+ mV T WAVE IN I/aVL/V5/V6] COMPARED TO ECG 10/02/2021 22:29:02 NO SIGNIFICANT CHANGES Electronically Signed On 10-04-2021 9:21:56 CDT by Viktoria Streeter M.D.
[2021-10-03] MEDS: SODIUM CHLORIDE 0.9% IV 1,000 ML 125 ML IV CONT (18:00)
[2021-10-03] MEDS: NITROGLYCERIN SL 0.4 MG TABLET SUBLINGUAL (18:30)
[2021-10-03] MEDS: methylPREDNISolone 4 MG TABLET 8 MG PO (20:52)
[2021-10-03] MEDS: TICAGRELOR 90 MG TABLET PO (20:53)
[2021-10-04] VITALS (7 sets, daily range): BP systolic 104–117; BP diastolic 59–73; PULSE 53–71; RESP 15–16; TEMP 36.4–37.1; O2SAT 95–100
--- NOTE | 2021-10-04 | ECHO_ITS ---
Patient Info Name: Baron Florentino Age: 61 years : 1960 Gender: Male Ht: 72 in Wt: 193 lbs BSA: 2.12 m2 HR: 65 bpm BP: 105 / 70 mmHg Heart Rhythm: Sinus Rhythm Technical Quality: Fair Exam Date: 10/04/2021 12:01 PM Exam Location: [facility] Pulmonary Exam Room: Patient Status: Inpatient Admit Date: 10/03/2021 Staff Ordering Physician: Mohamud Vinson MD Bread Molder: Jenni Vela RDCS Attending Provider: Mohamud Vinson MD Referring Physician: Alisson CASTRO; Exam Type: CA echo doppler color flow Study Info Indications - angiana cad cabg chest pain s/p cath 10/03/21 Complete two-dimensional, color flow and Doppler transthoracic echocardiogram is performed. Summary 1. Complete two-dimensional, color flow and Doppler transthoracic echocardiogram is performed. 2. Normal left ventricular size and thickness with good contractility of all segments. Ejection fraction 65-70%. Normal diastolic function. No segmental wall motion abnormalities. 3. Left atrial chamber dimension is mildly enlarged. 4. No significant valve disease. 5. Normal inferior vena cava with >50% collapse upon inspiration consistent with normal right atrial pressure, 10 mmHg. 6. No pulmonary hypertension, estimated pulmonary arterial systolic pressure is 35 mmHg. 7. Normal sinus rhythm. Left Ventricle Left ventricular chamber dimension is normal. Left ventricular systolic function is normal, estimated at 65-70%. There is no increased left ventricular wall thickness. Left ventricular septal wall motion is normal. The left ventricular diastolic function is normal. Right Ventricle Right ventricular chamber dimension is normal. Right ventricular systolic function is normal. Left Atria Left atrial chamber dimension is mildly enlarged. Right Atria Right atrial chamber dimension is normal. Aortic Valve The aortic valve is trileaflet. There is mild aortic valve sclerosis. There is no aortic valve stenosis. There is no aortic valve regurgitation. Pulmonic Valve The pulmonic valve is normal. There is no pulmonic valve stenosis. There is no pulmonic regurgitation. Mitral Valve The mitral valve has normal leaflets. There is no mitral valve stenosis. There is trace mitral valve regurgitation. Tricuspid Valve The tricuspid valve leaflets are normal. There is no significant tricuspid valve stenosis. There is trace tricuspid valve regurgitation. No pulmonary hypertension, estimated pulmonary arterial systolic pressure is 35 mmHg. Pericardium/Pleural The pericardium appears normal. There is no pericardial effusion. Inferior Vena Cava Normal inferior vena cava with >50% collapse upon inspiration consistent with normal right atrial pressure, 10 mmHg. Aorta The aortic root size at the sinus of Valsalva is normal. The prox ascending aorta size is normal. Left Ventricular Outflow Tract Name Value Normal LVOT 2D LVOT Diameter 2.0 cm LVOT Doppler LVOT Peak Gradient 5 mmHg LVOT Mean Gradient 2 mmHg LVOT VTI
[2021-10-04] MEDS: methylPREDNISolone 4 MG TABLET PO ×3 (05:42→13:06)
[2021-10-04] MEDS: PANTOPRAZOLE 40 MG TABLET PO (09:57)
[2021-10-04] MEDS: ROSUVASTATIN 10 MG TABLET 20 MG PO (09:58)
[2021-10-04] MEDS: OMEGA 3 POLYUNSAT FATTY ACIDS 1 GM CAP 2 GM PO (09:59)
[2021-10-04] MEDS: metFORMIN HCL 500 MG TABLET 1000 MG PO (09:59)
[2021-10-04] MEDS: METOPROLOL SUCCINATE EXT REL 100 MG TABCR PO (09:59)
[2021-10-04] MEDS: CHOLECALCIFEROL 1,000 UNITS TABLET 4000 UNITS PO (09:59)
[2021-10-04] MEDS: ASPIRIN 81 MG ENTERIC TABLET PO (09:59)
[2021-10-04] MEDS: TICAGRELOR 90 MG TABLET PO (10:00)
[2021-10-04 10:11] LABS: Glucose Point of Care 218 mg/dl (65-105)
--- NOTE | 2021-10-04 10:15 | PM.PNCARD ---
Progress Note: A&P Assessment and Plan (1) CAD (coronary artery disease): Code(s): I25.10 - Atherosclerotic heart disease of [place] coronary artery without angina pectoris Status: Acute Assessment and Plan: History of CAD and CABG. Has angina at home, which seem to be progressing. Saphenous vein graft to the diagonal and a short segment of the Left anterior descending is severely diseased and could not be intervened upon percutaneously. Medical therapy is recommended. Reviewed catheterization results with patient Add Imdur 30 mg daily Add sublingual TNG Dr. Currie also recommends dual anti-platelet therapy and added Brilinta Outpatient follow-up; may need to advance antianginal therapy as tolerated. Post catheterization counseling, activity restrictions Plan Okay for discharge today. Subjective Date/time seen: 10/04/21 10:15 Interval history: ?Mr. Draper is a 61-year-old male with a past medical history of hyperlipidemia, type 2 diabetes, complex multivessel coronary artery disease status post coronary artery bypass grafting.? This is a patient who initially established care with Dr. Davis in 2017 when he presented to the hospital with unstable angina and underwent cardiac catheterization that showed 80% distal hazy left main lesion, LAD with a 100% SCIENTIFIC MANAGER, and patent bypass grafts x4.? He is now followed by Dr. Almanza.? He has been stable up until about 1 week ago when he began to experience exertional chest pain.? He states that he will develop retrosternal chest pain after walking up a flight of stairs or working out in the yard.? His chest pain is relieved by about 10 minutes of rest.? He does not use nitroglycerin at home.? He describes radiation his chest pain to his left shoulder and back.? He also has experienced numbness and tingling in his left arm fingers associated his chest pain.? He has experienced some episodes of chest pain at rest.? Troponins negative. EKG shows T-wave inversion in 1 and aVL, personally reviewed. 10/03/2021 cardiac catheterization: Patent [place] to the Left anterior descending, patent saphenous vein graft to OM 1 and OM 2. Saphenous vein graft to diagonal and a short segment of the Left anterior descending had a 95% stenosis. Dr. Henry could not open the vessel and recommends medical therapy. Date of service 10/04/2021: Patient is doing well, no angina up in his room. No shortness of breath. Occasionally feels palpitations, positional. Telemetry does not show any significant arrhythmias. Understands his catheterization results and plan for medical therapy. Review of Systems Eyes: Eyes: Reports no additional eye complaints ENT: Denies epistaxis Cardiovascular: Cardiovascular: Denies chest pain Respiratory: Respiratory: Denies dyspnea Gastrointestinal: Gastrointestinal: Denies abdominal pain Genitourinary: Genitourinary: Denies hematuria Musculoskeletal: Musculoskeletal: Reports no additional musculoskeletal complaints Integumentary/Breasts: Skin/Breast: Reports system reviewed and no additional complaints, except as docu Neurologic: Denies confusion Psychiatric: Psychiatric: Denies behavioral changes Exam Const: Other: Pleasant middle-aged male in no distress HENMT: General nose exam: no epistaxis Neck: Neck: supple Resp: Effort & Inspection: normal respiratory effort Auscultation: clear to auscultation bilaterally Cardio: Rate: regular rate Rhythm: regular rhythm Heart sounds: no murmurs GI: Inspection: non-distended Other: Soft and nontender Skin: General skin exam: no rashes or lesions noted Other: Cardiac catheterization site soft with no hematoma or significant ecchymosis. Distal pulses right lower extremity intact. Neuro: Speech: normal speech Motor exam (neuro): Normal motor muscle tone present throughout Other: Alert and oriented Extrem: General: no edema Psych: Mental Status: mental status grossly normal Affect: normal
--- NOTE | 2021-10-04 11:14 | PM.DS ---
DS: Admitting Diagnosis Discharge Date October 04, 2021 Admitting Diagnosis Chest pain, coronary disease DS: Discharge Diagnosis Discharge Diagnosis (1) Chest pain: Code(s): R07.9 - Chest pain, unspecified Status: Acute Assessment and Plan: Catheterization did show chronic coronary disease. Medical management was recommended. Patient will be on Brilinta which is new and also nitroglycerin and Imdur. (2) CAD (coronary artery disease): Code(s): I25.10 - Atherosclerotic heart disease of [place] coronary artery without angina pectoris Status: Acute Assessment and Plan: Status post coronary artery bypass grafting Restart home meds (3) Hyperlipidemia: Code(s): E78.5 - Hyperlipidemia, unspecified Status: Acute Assessment and Plan: Restart home meds (4) GERD (gastroesophageal reflux disease): Code(s): K21.9 - Gastro-esophageal reflux disease without esophagitis Status: Acute Assessment and Plan: Restart home meds DS: Summary Hospital Course Hospital Course: Admitted for chest pain, catheterization showed chronic coronary are disease. cardiology recommended maximizing medical therapy. Medications were adjusted. New medications include Brilinta, Imdur, nitroglycerin as needed. Resume all other home medications Time Spent with Patient Time attestation: Total time spent providing and/or coordinating discharge services: Exam Const: General: comfortable, no acute distress, well developed, alert and awake Nutritional Appearance: average body habitus Orientation/consciousness: patient oriented x3 Other: Well-appearing HENMT: Head: normal to inspection, normocephalic and atraumatic Ears: hearing grossly normal bilaterally Face and sinus: normal facial exam Eyes: General: appearance normal, both eyes and all related structures Pupils: Equal, round and reactive pupils present EOM: EOMs intact bilaterally Neck: Neck: full ROM, no lymphadenopathy and no JVD Thyroid: thyroid normal Lymphatic: no lymphadenopathy noted Resp: Effort & Inspection: normal respiratory effort and able to speak in complete sentences Auscultation: clear to auscultation bilaterally Cardio: Jugular venous distension: no JVD Rate: regular rate Rhythm: regular rhythm Heart sounds: S1 normal heart sound present and S2 normal heart sound present : General: Yes deferred Skin: Rashes: no rashes Wounds: no wounds Neuro: General: patient oriented x3 and CN's II-XI intact bilaterally Cranial nerves: Yes CN's II-XII intact bilaterally and Yes Equal, round and reactive pupils present Cognition (Neuro): normal cognition Speech: normal speech Gait exam (Neuro): Normal gait present Motor exam (neuro): 5/5 motor strength present throughout Extrem: General: normal to inspection, full ROM, no joint enlargement and no pedal edema DS: Data Data Completed and Pending Labs on day of discharge: Labs from last 24 hours 10/04/21 10:03 POC Capillary Glucose 218 H Discharge Plan Discharge Attending physician on discharge: Sae Gan Consulting providers: Jesus Almanza Discharging Clinician: Sae Gan Patient Disposition: Home, Self-Care Activity: no preference Diet: as tolerated Discharge Instructions: [facility] [address] [place] [address] DISCHARGE INSTRUCTIONS - POST PCI Activity 1. No driving until 10/06/21. 2
== END 2021-10-04 13:35 | disposition home or self-care (01) ==
LOC: ANHED 10-03 00:16 → ANHIMU 10-03 03:39
PROVIDERS: Internal Medicine Cardiovascular Disease; Admitting Provider Internal Medicine; Emergency Provider Emergency Medicine; PCP Physician Assistant; Visit Provider Chiropractor
PROC: 4A023N7 Measurement of Cardiac Sampling and Pressure, Left Heart, Percutaneous Approach (ICD-10-PCS; CPT 93459; principal; 2021-10-03 14:30)
PROC: (CPT 92920; 2021-10-03 14:30)
DX: R07.9 Chest pain, unspecified (principal); Z79.82 Long term (current) use of aspirin; I25.10 Atherosclerotic heart disease of native coronary artery without angina pectoris; E11.9 Type 2 diabetes mellitus without complications; K21.9 Gastro-esophageal reflux disease without esophagitis; E78.5 Hyperlipidemia, unspecified; I10 Essential (primary) hypertension; Z95.1 Presence of aortocoronary bypass graft; Z20.822 Contact with and (suspected) exposure to COVID-19
CPT/HCPCS: 36415; 71046; 80053; 82948; 83690; 84484; 85025; 85610; 85730; 92920; 93005; 93306; 93459; 96360; 96361; 96372; 99285; A9270; C1725; C1760; C1769; C1887; C1894; C9803; G0269; G0378; J0583; J1644; J1650; J2250; J3010; J7030; J7040; U0003; U0005